=== PATIENT | female | born 1955 | race Caucasian/White ===

== ENCOUNTER 2025-02-19 13:01 | Emergency (ER) | payer MEDICARE, OTHER, SELFPAY ==
[2025-02-19 13:01] VITALS: BP 147/79; PULSE 67; RESP 18; TEMP 37.4; O2SAT 98
--- NOTE | 2025-02-19 13:34 | ED_ITS ---
HPI - Skin/Abscess/Foreign Bdy General Chief complaint: Skin/Abscess/Foreign Body Stated complaint: sting Time Seen by Provider: 02/19/25 13:34 Source: patient and family Mode of arrival: ambulatory Limitations: no limitations History of Present Illness HPI narrative: patient is a 70-year-old female with a left ring finger wedding ring stuck due to a insect bite on the same finger and causing swelling. She also has a right forearm rash from a insect bite. MD complaint: rash and insect bite/sting Onset (ago): day(s) ( One) Tetanus up to date: yes Location: LUE and RUE Severity: moderate Severity scale (1-10): 3 Quality: sharp and constant Pain Consistency: constant Relieving factors: none Exacerbating factors: none Context: witnessed insect bite Associated symptoms: denies other symptoms Treatments prior to arrival: none Related Data Allergies Allergy/AdvReac Type Severity Reaction Status Date / Time No Known Allergies Allergy Verified 02/19/25 13:45 Review of Systems Review of Systems: All systems reviewed & are unremarkable except as noted in HPI and below Constitutional: Constitutional: Reports no additional constitutional complaints Eyes: Eyes: Reports no additional eye complaints ENT: Reports system reviewed and no additional complaints, except as documented Cardiovascular: Cardiovascular: Reports no additional cardiovascular complaints Respiratory: Respiratory: Reports no additional respiratory complaints Gastrointestinal: Gastrointestinal: Reports no additional gastrointestinal complaints Genitourinary: Genitourinary: Reports no additional female genitourinary complaints Musculoskeletal: Musculoskeletal: Reports no additional musculoskeletal complaints Integumentary/Breasts: Skin/Breast: Reports system reviewed and no additional complaints, except as docu Neurologic: Reports system reviewed and no additional complaints, except as documented Psychiatric: Psychiatric: Reports no additional psychiatric complaints Endocrine: Endocrine: Reports no additional endocrine complaints Hematologic/Lymphatic: Hematologic/Lymphatic: Reports no additional hematologic/lymphatic complaints Allergic/Immunologic: Allergic/Immunologic: Reports no additional allergic/immunologic complaints Exam Const: General: healthy appearing Nutritional Appearance: well nourished Orientation/consciousness: patient oriented x3 HENMT: Head: normal to inspection Ears: external ears normal Face/No se/Sinus: Normal external nose present Eyes: Conjunctivae: conjunctivae normal Pupils: Equal, round and reactive pupils present EOM: EOMs intact bilaterally Neck: Neck: normal visual inspection Chest: Chest palpation & inspection: normal inspection of the chest Resp: Effort & Inspection: normal respiratory effort and not labored Auscultation: clear to auscultation bilaterally and no crackles Cardio: Rate: regular rate Rhythm: regular rhythm Heart sounds: no murmurs GI: Inspection: non-distended Auscultation: normal bowel sounds : General: Yes bladder normal to palpation Back/Spine/Pelvis: Back: no CVA tenderness Skin: General skin exam: No normal color Rashes: no rashes Wounds: no wounds Other: left ring finger is swollen and the ring is stuck proximally and the nail bed has erythema of cellulitis; right forearm has an area with an insect bite and slight swelling and erythema of cellulitis Neuro: General: patient oriented x3, moves all extremities and no meningeal signs Extrem: General: normal to inspection and no clubbing, cyanosis or edema Psych: Mental Status: mental status grossly normal Affect: normal affect Course Vital Signs Vital signs: Vital Signs Temperature 37.4 C 02/19/25 13:01 Pulse Rate 67 02/19/25 13:01 Respiratory Rate 18 02/19/25 13:01 Blood Pressure 147/79 H 02/19/25 13:01 Pulse Oximetry 98 02/19/25 13:01 Oxygen Delivery Room Air 02/19/25 13:01 Temperature 37.4 C 02/19/25 13:01 Pulse Rate 67 02/19/25 13:01 Respiratory Rate 18 02/19/25 13:01 Blood Pressure 147/79 H 02/19/25 13:01 Pulse Oximetry 98 02/19/25 13:01 Oxygen Delivery Room Air 02/19/25 13:01 Procedures Other Procedure Procedure 1: Other Procedure: Left ring finger wedding ring cut with a metal fitter Kristen with good results and no complications and patient tolerated procedure well MDM - Skin/Abscess/Foreign Bdy MDM Narrative Medical decision making narrative: patient is a 70-year-old female with a left ring finger wedding ring stuck and some cellulitis. Insect bite. Cut the ring off the left ring finger. Keflex. Tetanus up-to-date. Discharge Plan Discharge Clinical Impression: Tight ring on finger, Cellulitis of arm, left Cellulitis of ring finger Qualifiers: Laterality: right Qualified Code(s): L03.011 - Cellulitis of right finger Patient Disposition: Home Condition: Stable Instructions: Antibiotic Form, Crush Injury (ED) Patient Language: Ukrainian Prescriptions: New cephalexin 500 mg capsule 500 mg PO BID 7 Days Qty: 14 0RF Follow-up/Referrals: UNKNOWN,DOCTOR [Non-Staff] Time of Disposition: 13:47
[2025-02-19] MEDS: CEPHALEXIN 500 MG CAPSULE PO (13:50)
== END 2025-02-19 14:11 | disposition home or self-care (01) ==
PROVIDERS: Emergency Provider Emergency Medicine; PCP Internal Medicine
DX: S60.465A Insect bite (nonvenomous) of left ring finger, initial encounter (principal); S60.444A External constriction of right ring finger, initial encounter; L03.012 Cellulitis of left finger; W57.XXXA Bitten or stung by nonvenomous insect and other nonvenomous arthropods, initial encounter
CPT/HCPCS: 99283; A9270